=== PATIENT | female | born 1940 | race Caucasian/White ===

== ENCOUNTER 2020-12-31 10:49 | Emergency (ER) | payer OTHER ==
--- NOTE | 2020-12-31 11:29 | RAD REPORT ---
EXAM DESCRIPTION: CT - CTHCSPWOC - 12/31/2020 11:06 am CLINICAL HISTORY: PAIN COMPARISON: No comparisonsNo comparisons TECHNIQUE: Axial 5 mm thick images of the head were obtained. Axial 2 mm thick images of the cervic al spine were obtained with sagittal and coronal reconstruction images generated and reviewed. All CT scans are performed using dose optimization technique as appropriate and may include automated exposure control or mA/KV adjustment according to patient size. FINDINGS: Intraventricular hemorrhage is present involving the atrium and occipital horn of the left lateral ventricle. Intraparenchymal hemorrhage is not seen. No epidural or subdural hematoma identif ied. No hydrocephalus is present. Patient does have significant chronic ischemic change. Atrophy hinojosa ges are only mild. No midline shift is present. An acute cortical based infarction is not identified. No cortical edema or sulcal effacement. Mastoid air cells and paranasal sinuses are clear. No globe or orbit abnormality seen. Small posterior left scalp hematoma is present. Cervical bodies are normal in height. There is very slight anterior subluxation of C5 on C6. Advanced degenerative change involves the inferior endplate of C6 with C6-7 disc space narrowing and endplate spurring. Prominent facet degenerative change present on the left at C4-5 and C5-6. No other disc sp vita narrowing. No fracture or acute bony abnormality. Central canal detail is inherently limited. No paraspinal mass or hematoma. Carotid calcifications are present. IMPRESSION: Moderate-sized left lateral ventricle intraventricular hemorrhage. No epidural or subdur al hematoma identifiable. No intraparenchymal hemorrhage seen. No hydrocephalus. No intraventricular mass or other abnormality seen to suggest intraventricular hemorrhage triggered t he fall rather than the fall causing intraventricular hemorrhage. Patient has significant chronic ischemic change but only mild atrophy. Left parietal scalp hematoma with no underlying fracture. Cervical spine degenerative change as detailed. No acute cervical spine finding.
[2020-12-31] MEDS ORDERED: NA CHLORIDE 0.9% 1,000 ML IV SCH (11:45)
[2020-12-31] MEDS ORDERED: levETIRAcetam 1,000 MG in NA CHLORIDE 0.9% 100 ML IV ONE (12:00)
[2020-12-31] MEDS ORDERED: LIDOCAINE 1% W/EPI 1:100,000 MDV 20 ML VIAL ONE (12:03)
[2020-12-31 12:05] LABS: Protime INR 0.97
[2020-12-31] MEDS ORDERED: NA CHLORIDE 0.9% 1,000 ML ONE (12:05)
[2020-12-31 12:07] LABS: Absolute Lymphocytes (CBC) 0.7 K/uL (0.7-4.9); Basophils % 0.4 % (0-1.3); Hematocrit 40.7 % (36.0-45.0); Lymphocytes % 12.3 % (15.3-44.8); MPV 8.8 fL (7.6-11.3); RBC Red Blood Cell Count 4.51 M/uL (3.86-4.86)
--- NOTE | 2020-12-31 12:19 | EDPHYS ---
Physician Documentation [facility] Name: Kay Amato Age: 80 yrs Sex: Female : 1940 Arrival Date: 12/31/2020 Time: 10:53 Bed 25 Private MD: SAMPSON Physician Kris Lock HPI: 12/31 11:57 This 80 yrs old Female presents to ER via EMS with complaints of Head Injury leonides With LOC-Adult. 11:57 The patient or guardian reports crush injury, decreased movement, swelling. The leonides complaints affect the left side of the back of head and left occipital area. Context of injury: The problem was sustained at home, resulted from a fall. Onset: The symptoms/episode began/occurred just prior to arrival. Associated signs and symptoms: The patient has no apparent associated signs or symptoms, Loss of consciousness: This patient experience a loss of consciousness, for 10 minute(s). Severity of symptoms: At their worst the symptoms were moderate, in the emergency department the symptoms have improved. The patient has not experienced similar symptoms in the past. Historical: - Allergies: 11:42 Penicillins; aj1 11:42 dye; aj1 - Home Meds: 11:42 Tramadol Oral [Active]; gabapentin oral [Active]; pregabalin Oral [Active]; Myrbetriq aj1 oral [Active]; alendronate oral [Active]; atorvastatin oral [Active]; aspirin 81 mg Oral chew 1 tab once daily [Active]; - PMHx: 11:42 breast cancer; shingles; aj1 - PSHx: 11:42 mastectomy - right side; aj1 - Immunization history:: Adult Immunizations up to date. - Social history:: Smoking status: Patient/guardian denies using tobacco. - Family history:: not pertinent. ROS: 12:01 Constitutional: Negative for fever, chills, and weight loss, Eyes: Negative for injury, leonides pain, redness, and discharge, ENT: Negative for injury, pain, and discharge, Neck: Negative for injury, pain, and swelling, Cardiovascular: Negative for chest pain, palpitations, and edema, Respiratory: Negative for shortness of breath, cough, wheezing, and pleuritic chest pain, Abdomen/GI: Negative for abdominal pain, nausea, vomiting, diarrhea, and constipation, Back: Negative for injury and pain, : Negative for injury, bleeding, discharge, and swelling, Skin: Negative for injury, rash, and discoloration, Psych: Negative for depression, anxiety, suicide ideation, homicidal ideation, and hallucinations, Allergy/Immunology: Negative for hives, rash, and allergies, Endocrine: Negative for neck swelling, polydipsia, polyuria, polyphagia, and marked weight changes, Hematologic/Lymphatic: Negative for swollen nodes, abnormal bleeding, and unusual bruising. 12:01 MS/extremity: Positive for decreased range of motion, pain, swelling, tenderness, of the left lower back and left gluteus cornelius. Exam: 12:01 Constitutional: This is a well developed, well nourished patient who is awake, alert, leonides and in no acute distress. Eyes: Pupils equal round and reactive to light, extra-ocular motions intact. Lids and lashes normal. Conjunctiva and sclera are non-icteric and not injected. Cornea within normal limits. Periorbital areas with no swelling, redness, or edema. ENT: Nares patent. No nasal discharge, no septal abnormalities noted. Tympanic membranes are normal and external auditory canals are clear. Oropharynx with no redness, swelling, or masses, exudates, or evidence of obstruction, uvula midline. Mucous membranes moist. Neck: Trachea midline, no thyromegaly or masses palpated, and no cervical lymphadenopathy. Supple, full range of motion without nuchal rigidity, or vertebral point tenderness. No Meningismus. Chest/axilla: Normal chest wall appearance and motion. Nontender with no deformity. No lesions are appreciated. Cardiovascular: Regular rate and rhythm with a normal S1 and S2. No gallops, murmurs, or rubs. Normal PMI, no JVD. No pulse deficits. Respiratory: Lungs have equal breath sounds bilaterally, clear to auscultation and percussion. No rales, rhonchi or wheezes noted. No increased work of breathing, no retractions or nasal flaring. Abdomen/GI: Soft, non-tender, with normal bowel sounds. No distension or tympany. No guarding or rebound. No evidence of tenderness throughout. Back: No spinal tenderness. No costovertebral tenderness. Full range of motion. Female : Normal external genitalia. Neuro: Awake and alert, GCS 15, oriented to person, place, time, and situation. Cranial nerves II-XII grossly intact. Motor strength 5/5 in all extremities. Sensory grossly intact. Cerebellar exam normal. Normal gait. Psych: Awake, alert, with orientation to person, place and time. Behavior, mood, and affect are within normal limits. 12:01 Head/face: Noted is contusion, hematoma, that is moderate, swelling, that is moderate, of the left side of the back of head and left occipital area. 12:01 Musculoskeletal/extremity: Extremities: grossly normal except: noted in the left lower back and left gluteus cornelius: decreased ROM, pain, swelling, tenderness, ROM: full active range of motion, full passive range of motion, Circulation is intact in all extremities. Sensation intact. Compartment Syndrome exam of affected extremity: is normal. DVT Exam: negative Homans' sign noted on exam, no appreciated bluish discoloration, no erythema, no increased warmth, pain, swelling, tenderness. 12:01 Neuro: Orientation: is normal, appropriate for stated age, no acute changes, Mentation: is normal, appropriate for stated age, no acute changes, Memory: is normal, appropriate for stated age, Cranial nerves: grossly normal, is grossly normal based on the patient's age, no acute changes, Cerebellar function: is grossly normal, is grossly normal based on the patient's age, no acute changes, Motor: is normal, is grossly normal based on the patient's age, no acute changes, moves all fours, strength is normal, Sensation: is normal, no obvious gross deficits, appropriate no acute changes, Gait: not tested. Deep tendon reflexes are 2+ (normal) in the bilateral brachioradialis, bicep, tricep and patellar and Achilles tendons, Babinski testing is normal, seizure activity, is not displayed by the patient. 12:22 ECG was reviewed by the Attending Physician. leonides Vital Signs: 11:00 BP 147 / 69; Pulse 79; Resp 18; Temp 98.2; Pulse Ox 97% ; Pain 2/10; aj1 11:30 BP 165 / 74; Pulse 89; Resp 18; Pulse Ox 99% on R/A; aj1 12:00 BP 159 / 86; Pulse 80; Resp 18; Pulse Ox 99% on R/A; aj1 12:30 BP 170 / 76; Pulse 79; Resp 18; Pulse Ox 100% on R/A; aj1 Leslie Coma Score: 11:00 Eye Response: spontaneous(4). Verbal Response: oriented(5). Motor Response: obeys aj1 commands(6). Total: 15. 11:30 Eye Response: spontaneous(4). Verbal Response: oriented(5). Motor Response: obeys aj1 commands(6). Total: 15. 11:57 Eye Response: spontaneous(4). Verbal Response: oriented(5). Motor Response: obeys leonides commands(6). Total: 15. 12:00 Eye Response: spontaneous(4). Verbal Response: oriented(5). Motor Response: obeys aj1 commands(6). Total: 15. 12:04 Eye Response: spontaneous(4). Verbal Response: oriented(5). Motor Response: obeys leonides commands(6). Total: 15. Trauma Score (Adult): 11:00 Eye Response: spontaneous(1); Verbal Response: oriented(1); Motor Response: obeys aj1 commands(2); Systolic BP: > 89 mm Hg(4); Respiratory Rate: 10 to 29 per min(4); Newkirk Score: 15; Trauma Score: 12 12:30 Eye Response: spontaneous(1); Verbal Response: oriented(1); Motor Response: obeys aj1 commands(2); Systolic BP: > 89 mm Hg(4); Respiratory Rate: 10 to 29 per min(4); Leslie Score: 15; Trauma Score: 12 Laceration: 12:05 Wound Repair of 2.5cm ( 1.0in ) subcutaneous laceration to left side of the back of [facility] head. Arterial bleeding noted.. Distal neuro/vascular/tendon intact. Anesthesia: Local anesthetic administered with 0 mls of none. Wound prep: Simple cleansing by ok. Skin closed with 6 rafaela Rafaela using staple gun. Dressed with pressure dressing, non-adherent dressing. Patient tolerated well. MDM: 10:54 Patient medically screened. [facility] 12:04 Differential diagnosis: Hematoma on Laceration of Intracranial bleed- Concussion with leonides LOC. Data reviewed: vital signs, nurses notes, lab test result(s), EKG, radiologic studies, CT scan, plain films. Data interpreted: case monitor: rate is 89 beats/min, rhythm is regular, Pulse oximetry: on room air is 99 %. Test interpretation: by ED physician or midlevel provider: ECG, plain radiologic studies. Counseling: I had a detailed discussion with the patient and/or guardian regarding: the historical points, exam findings, and any diagnostic results supporting the discharge/admit diagnosis, lab results, radiology results, the need to transfer to another facility, for higher level of care, [facility] does not immediately have the required specialist. 12/31 11:26 Order name: Basic Metabolic Panel [facility] 12/31 11:26 Order name: CBC with Diff [facility] 12/31 11:26 Order name: LFT's; Complete Time: 12:23 [facility] 12/31 11:26 Order name: Magnesium; Complete Time: 12:23 [facility] 12/31 11:26 Order name: NT PRO-BNP; Complete Time: 12:23 [facility] 12/31 11:26 Order name: PT-INR [facility] 12/31 10:55 Order name: CT Head C Spine; Complete Time: 11:44 [facility] 12/31 11:26 Order name: Troponin (emerg Dept Use Only); Complete Time: 12:23 [facility] 12/31 11:26 Order name: XRAY Chest (1 view) [facility] 12/31 11:26 Order name: Basic Metabolic Panel; Complete Time: 12:23 [facility] 12/31 11:49 Order name: Pelvis XRAY [facility] 12/31 12:14 Order name: SARS-COV-2 RT PCR [facility] 12/31 11:26 Order name: EKG; Complete Time: 11:27 12/31 11:26 Order name: Cardiac monitoring; Complete Time: 11:31 12/31 11:26 Order name: EKG - Nurse/Tech; Complete Time: 11:31 12/31 11:26 Order name: IV Saline Lock; Complete Time: 11:31 12/31 11:26 Order name: Labs collected and sent; Complete Time: 12:13 12/31 11:26 Order name: O2 Per Protocol; Complete Time: 12:13 12/31 11:26 Order name: O2 Sat Monitoring; Complete Time: 12:13 12/31 11:26 Order name: Seizure Precautions; Complete Time: 11:36 12/31 11:49 Order name: CT Chest Abdomen Pelvis W/O Contrast [facility] 12/31 11:50 Order name: Dressing - Wound; Complete Time: 12:08 12/31 11:50 Order name: Gloves, Sterile; Complete Time: 11:54 [facility] 12/31 11:50 Order name: Setup Suture Tray; Complete Time: 11:54 [facility] 12/31 11:50 Order name: Wound dressing; Complete Time: 12:08 [facility] EC:22 Rate is 71 beats/min. Rhythm is regular. QRS [place] is Normal. [place] interval is normal. QRS leonides interval is normal. QT interval is normal. No Q waves. T waves are Normal. No ST changes noted. Clinical impression: Normal ECG and No evidence of ischemia. Interpreted by me. Reviewed by me. Administered Medications: 12:32 Drug: Keppra (levETIRAcetam) 1000 mg Route: IV; Rate: per protocol; Site: left aj1 antecubital; 12:32 Drug: NS 0.9% 1000 ml Route: IV; Rate: 125 ml/hr; Site: left antecubital; aj1 Disposition Summary: 12/31/20 12:18 Transfer Ordered Transfer Location: [facility] leonides Reason: Higher level of care leonides Condition: Fair leonides Problem: new leonides Symptoms: have improved leonides Accepting Physician: dr stacey mcmahon(12/31/20 13:12) rebecca Diagnosis - Fall (on) (from) other stairs and steps leonides - Contusion of left hip - hematoma leonides - Laceration without foreign body of other part of head - 2.5 cm leonides - intraventricular hemorrhage, left lateral ventricle, moderate sized, traumatic leonides Discharge Instructions: - Discharge Summary Sheet aj1 Forms: - SBAR form aj1 - Medication Reconciliation Form leonides Signatures: Dispatcher [employer] EDAnnalee Leblanc RN RN aj1 Kris Lock MD MD cha Botello, Elizabeth eb Corrections: (The following items were deleted from the chart) 12:14 11:27 CORONAVIRUS+MR.LAB.BRZ ordered. EDMS EDMS 12:26 11:50 Hip Left 2 View+RAD.RAD.BRZ ordered. EDMS EDMS 12:57 12:18 dr stacey mcmahon cha [facility] 13:12 12:57 dr satcey lund eb
--- NOTE | 2020-12-31 12:19 | ER ---
Nurse's Notes [facility] Name: Kay Amato Age: 80 yrs Sex: Female : 1940 Arrival Date: 12/31/2020 Time: 10:53 Bed 25 Private MD: Diagnosis: Fall (on) (from) other stairs and steps;Contusion of left hip-hematoma;Laceration without foreign body of other part of head-2.5 cm;intraventricular hemorrhage, left lateral ventricle, moderate sized, traumatic Presentation: 12/31 11:00 Chief complaint: EMS states: Patient fell down half a flight of stairs, estimated 8 to aj1 10 steps. The patient's heard her fall and came into the room. +LOC witnessed by . Laceration to left occipital region, skin tear to left arm. Patient reports tenderness to left eye, redness noted to left eye. PERRLA. Patient is slow to answer questions, and does not remember falling down the stairs, but is otherwise oriented x3 at this time. 11:00 Acuity: ESTIVEN 2 aj1 11:00 Care prior to arrival: Cervical collar in place. Placed on backboard. Mechanism of aj1 Injury: Fall. Trauma event details: Injury occurred in the [facility]. 11:00 Method Of Arrival: EMS: [facility] aj1 11:41 Coronavirus screen: Client denies travel out of the [place] in the last 14 days. Ebola aj1 Screen: Patient denies travel to an Ebola-affected area in the 21 days before illness onset. Initial Sepsis Screen: Does the patient meet any 2 criteria? No. Patient's initial sepsis screen is negative. Does the patient have a suspected source of infection? No. Patient's initial sepsis screen is negative. Risk Assessment: Do you want to hurt yourself or someone else? Patient reports no desire to harm self or others. Onset of symptoms was December 31, 2020. Trauma Activation: Physician: ED Physician; Name: Ashvin; Notified At: 10:42; Arrived At: 10:42 Physician: General Surgeon; Name: ; Notified At: 10:42; Arrived At: Physician: Radiology; Name: Shama; Notified At: 10:42; Arrived At: 10:42 Physician: Respiratory; Name: ; Notified At: 10:42; Arrived At: Physician: Lab; Name: ; Notified At: 10:42; Arrived At: Historical: - Allergies: 11:42 Penicillins; aj1 11:42 dye; aj1 - Home Meds: 11:42 Tramadol Oral [Active]; gabapentin oral [Active]; pregabalin Oral [Active]; Myrbetriq aj1 oral [Active]; alendronate oral [Active]; atorvastatin oral [Active]; aspirin 81 mg Oral chew 1 tab once daily [Active]; - PMHx: 11:42 breast cancer; shingles; aj1 - PSHx: 11:42 mastectomy - right side; aj1 - Immunization history:: Adult Immunizations up to date. - Social history:: Smoking status: Patient/guardian denies using tobacco. - Family history:: not pertinent. Screenin:00 Abuse screen: Denies threats or abuse. Denies injuries from another. Tuberculosis aj1 screening: No symptoms or risk factors identified. 11:00 Nutritional screening: No deficits noted. Fall Risk Fall in past 12 months (25 points). aj1 Secondary diagnosis (15 points) brain bleed. IV access (20 points). Ambulatory Aid- None/Bed Rest/Nurse Assist (0 pts). Gait- Normal/Bed Rest/Wheelchair (0 pts) Mental Status- Oriented to own ability (0 pts). Total Mackay Fall Scale indicates High Risk Score (45 or more points). Fall prevention measures have been instituted. Side Rails Up X 2 Placed Close to Nursing Station Frequent Obs/Assessments Occuring. Primary Survey: 11:00 NO uncontrolled hemorrhage observed. A: Airway: patent. Breathing/Chest: Respiratory aj1 pattern: regular. Circulation: Skin color: pink. Disability Alert. Exposure/Environment: All clothing and personal items were removed. Forensic evidence collection is not deemed to be indicated at this time. Items placed in patient belonging bag. 12:00 Reassessment Airway Airway Patent Breathing/Chest Respiratory pattern Regular aj1 Respiratory effort Spontaneous Unlabored Circulation Heart rhythm Sinus rhythm Color [place] Disability Alert. Assessment: 11:00 General: Appears in no apparent distress. comfortable, Behavior is calm, cooperative, aj1 appropriate for age. Pain: Complains of pain in left eye Pain currently is 2 out of 10 on a pain scale. Neuro: Level of Consciousness is awake, alert, obeys commands, Oriented to person, place, time, It Support Analyst are equal bilaterally. 11:00 Neuro: Speech is normal, Facial symmetry appears normal, Pupils are PERRLA, Reports a aj1 syncopal episode. 11:00 Cardiovascular: Denies chest pain, Patient's skin is warm and dry. Rhythm is sinus aj1 rhythm. Respiratory: Airway is patent Respiratory effort is even, unlabored, Respiratory pattern is regular, symmetrical. GI: No signs and/or symptoms were reported involving the gastrointestinal system. : No signs and/or symptoms were reported regarding the genitourinary system. EENT: No signs and/or symptoms were reported regarding the EENT system. Derm: Skin is pink, warm \T\ dry. Musculoskeletal: Circulation, motion, and sensation intact. Injury Description: Laceration sustained to scalp skin tear to left arm. 11:36 Reassessment: Dr. Lock at bedside stapling head laceration. aj1 12:00 Reassessment: Patient appears in no apparent distress at this time. Patient and/or aj1 family updated on plan of care and expected duration. Pain level reassessed. General: Appears in no apparent distress. comfortable, Behavior is calm, cooperative, appropriate for age. Pain: Complains of pain in left hip Pain does not radiate. Pain currently is 5 out of 10 on a pain scale. Quality of pain is described as aching. Neuro: Level of Consciousness is awake, alert, obeys commands, Oriented to person, place, time, situation, It Support Analyst are equal bilaterally Speech is normal, Facial symmetry appears normal, Pupils are PERRLA. Cardiovascular: Patient's skin is warm and dry. Rhythm is sinus rhythm. Respiratory: Airway is patent Respiratory effort is even, unlabored, Respiratory pattern is regular, symmetrical. 12:18 Reassessment: Report given to SARWAT Tay at [facility]. aj1 12:30 Reassessment: Patient appears in no apparent distress at this time. No changes from aj1 previously documented assessment. Patient and/or family updated on plan of care and expected duration. Pain level reassessed. Patient is alert, oriented x 3, equal unlabored respirations, skin warm/dry/pink. 12:47 Reassessment: Patient and/or family updated on plan of care and expected duration. Pain aj1 level reassessed. General: Appears in no apparent distress. comfortable, Behavior is calm, cooperative, appropriate for age. Neuro: Level of Consciousness is awake, alert, obeys commands, Oriented to person, place, time, situation, It Support Analyst are equal bilaterally Speech is normal, Facial symmetry appears normal. Cardiovascular: Patient's skin is warm and dry. Rhythm is sinus rhythm. Respiratory: Airway is patent Respiratory effort is even, unlabored, Respiratory pattern is regular, symmetrical. Vital Signs: 11:00 BP 147 / 69; Pulse 79; Resp 18; Temp 98.2; Pulse Ox 97% ; Pain 2/10; aj1 11:30 BP 165 / 74; Pulse 89; Resp 18; Pulse Ox 99% on R/A; aj1 12:00 BP 159 / 86; Pulse 80; Resp 18; Pulse Ox 99% on R/A; aj1 12:30 BP 170 / 76; Pulse 79; Resp 18; Pulse Ox 100% on R/A; aj1 Leslie Coma Score: 11:00 Eye Response: spontaneous(4). Verbal Response: oriented(5). Motor Response: obeys aj1 commands(6). Total: 15. 11:30 Eye Response: spontaneous(4). Verbal Response: oriented(5). Motor Response: obeys aj1 commands(6). Total: 15. 11:57 Eye Response: spontaneous(4). Verbal Response: oriented(5). Motor Response: obeys leonides commands(6). Total: 15. 12:00 Eye Response: spontaneous(4). Verbal Response: oriented(5). Motor Response: obeys aj1 commands(6). Total: 15. 12:04 Eye Response: spontaneous(4). Verbal Response: oriented(5). Motor Response: obeys leonides commands(6). Total: 15. Trauma Score (Adult): 11:00 Eye Response: spontaneous(1); Verbal Response: oriented(1); Motor Response: obeys aj1 commands(2); Systolic BP: > 89 mm Hg(4); Respiratory Rate: 10 to 29 per min(4); Allen Score: 15; Trauma Score: 12 12:30 Eye Response: spontaneous(1); Verbal Response: oriented(1); Motor Response: obeys aj1 commands(2); Systolic BP: > 89 mm Hg(4); Respiratory Rate: 10 to 29 per min(4); Leslie Score: 15; Trauma Score: 12 ED Course: 10:53 Patient arrived in ED. aj1 10:54 Kris Lock MD is Attending Physician. leonides 11:00 Patient has correct armband on for positive identification. aj1 11:00 Arm band placed on. aj1 11:00 Patient maintains SpO2 saturation greater than 95% on room air. aj1 11:00 No provider procedures requiring assistance completed. aj1 11:06 CT Head C Spine In Process Unspecified. EDMS 11:10 Annalee Razo, RN is Primary Nurse. aj1 11:13 Triage completed. aj1 11:47 Thermoregulation: warm blanket given to patient. aj1 11:[address] Lock with the Brandt Cruz Rn from the [facility]. 11:50 Initial lab(s) drawn, by wi, sent to lab. Inserted saline lock: 20 gauge in left kj1 antecubital area, using aseptic technique. Blood collected. 11:56 administrative approval given by Brandt Cruz Rn/ patient has been accepted to [facility] ER/ has accepted the patient in transfer/ report to be called to [phone]. 12:17 CT Chest Abdomen Pelvis W/O Contrast In Process Unspecified. EDMS 12:25 XRAY Chest (1 view) In Process Unspecified. EDMS 12:27 Pelvis XRAY In Process Unspecified. EDMS 12:49 Patient transferred, IV remains in place. aj1 13:11 Primary Nurse role handed off by Annalee Razo, RN Administered Medications: 12:32 Drug: Keppra (levETIRAcetam) 1000 mg Route: IV; Rate: per protocol; Site: left aj1 antecubital; 12:32 Drug: NS 0.9% 1000 ml Route: IV; Rate: 125 ml/hr; Site: left antecubital; aj1 Output: 12:51 Urine: 0ml; Total: 0ml. aj1 Outcome: 12:18 ER care complete, transfer ordered by . leonides 12:50 Transferred by ground EMS to [facility]. aj1 12:50 Condition: unchanged 12:50 Discharge instructions given to patient, family, Instructed on the need for transfer. 12:50 Demonstrated understanding of instructions. 12:50 Patient's length of stay was not longer than 2 hours. aj1 12:57 Patient left the ED. aj1 13:12 Patient left the ED. eb Signatures: Dispatcher [employer] Annalee Leach RN RN aj1 Kris Lock MD MD cha Botello, Elizabeth eb Jackson, Kandis kj1
[2020-12-31 12:22] LABS: ALT/SGPT 53 U/L (12-78); AST/SGOT 42 U/L (15-37); Albumin 3.8 g/dL (3.4-5.0); Alkaline Phosphatase 101 U/L (45-117); BUN Blood Urea Nitrogen 19 mg/dL (7-18); Bicarbonate 30 mmol/L (21-32); Bilirubin Direct 0.2 mg/dL (0-0.2); Bilirubin Total 0.4 mg/dL (0.2-1.0); Glucose Level 102 mg/dL (74-106); Magnesium 2.3 mg/dL (1.8-2.4); NT PRO-BNP 719 pg/mL (<450); Protein, Total 7.2 g/dL (6.4-8.2); Sodium Level 141 mmol/L (136-145); Troponin (Emerg Dept Use Only) < 0.02 ng/mL (0.0-0.045)
[2020-12-31 13:02] VITALS: TEMP 98.2
[2020-12-31 13:06] VITALS: BP 170/76; O2SAT 100
--- NOTE | 2020-12-31 13:07 | RAD REPORT ---
EXAM DESCRIPTION: CT - Chest Abd Pelvis Wo Con - 12/31/2020 12:18 pm CLINICAL HISTORY: TRAUMA TRAUMA, fall, chest abdomen and pelvic pain COMPARISON: No comparisons TECHNIQUE: Axial 5 millimeter thick images of the chest, abdomen and pelvis were obtained without IV contrast. Oral contrast was administered. All CT scans are performed using dose optimization technique as appropriate and may include automated exposure control or mA/KV adjustment according to patient size. FINDINGS: No pulmonary contusion or acute lung parenchymal process. Biapical pleural and parenchymal scarring changes are present. There is subpleural scarring throughout the mid and upper lung iniguez. No pneumothorax or pleural effusion. No chest wall mass or abnormal axillary lymphadenopathy seen. Mediastinal and hilar regions show no mass or lymphadenopathy. No significant cardiac finding. Righ t mastectomy changes are present. Patient has numerous right-sided old rib fractures. The liver, spleen and pancreas show no significant findings for non contrast imaging. Gallbladder an d biliary tree are normal. No hydronephrosis or suspicious renal mass. Isodense masses and pyelonephritis cannot be excluded on non contrast imaging. No adrenal abnormalities. No urinary bladder abnormalities. No dilated bowel loops or focal ball bowel wall thickening. No free air, free fluid or inflammatory stranding. No hernia, mass or bulky lymphadenopathy. Vascular calcifications present without aneurysm. Significant contusion changes are present in subcut aneous fatty tissues lateral to the left hip joint. No femoral head, neck or intertrochanteric fractu re identified. [id number] stops at the lesser trochanter of the left femur. No fracture of the pel vis. Sacral ala is intact. Patient has advanced degenerative disc, endplate and facet degenerative ch anges are present. IMPRESSION: CT chest imaging shows numerous old right-sided rib fractures but no pulmonary contusion or acute CT chest finding. No acute injury to the solid abdominal visceral or bowel. No peritoneal or retroperitoneal acute find ing. Significant contusion in the subcutaneous fatty tissues lateral to the left hip joint. No pelvic or h ip fracture seen. CT abdomen and pelvis imaging shows no significant or suspicious finding.
--- NOTE | 2020-12-31 13:26 | RAD REPORT ---
EXAM DESCRIPTION: RAD - Chest Single View - 12/31/2020 12:25 pm CLINICAL HISTORY: PAIN, fall, chest trauma COMPARISON: No remote chest film TECHNIQUE: AP portable chest image was obtained 12/31/2020 12:25 pm . FINDINGS: Extensive fibrotic lung change present. Pulmonary contusion, mass and infiltrate are not s uspected. Heart and vasculature are normal. No measurable pleural effusion and no pneumothorax. No ac eagle bone abnormality seen. Numerous old rib fractures are seen. No acute aortic findings suspected. IMPRESSION: No acute cardiopulmonary process.
--- NOTE | 2020-12-31 13:29 | RAD REPORT ---
EXAM DESCRIPTION: RAD - Pelvis - 12/31/2020 12:27 pm CLINICAL HISTORY: PAIN, fall COMPARISON: No comparisonsNone. TECHNIQUE: AP imaging of the pelvis was obtained. FINDINGS: No fracture of the bony pelvis. No fracture, dislocation or other acute hip joint finding. No significant SI joint findings. Significant contusion changes are seen in the subcutaneous fatty tissues lateral to the pelvis and hi p joint. IMPRESSION: Significant contusion/ edema changes are present in the subcutaneous fatty tissues later al to the hip joint and left hemipelvis. No hip joint fracture or pelvic fracture.
--- NOTE | 2021-01-02 09:02 | EKG ---
Test Date: 2020-12-31 Test Time: 10:59:44 Translational Specialist: DEMARIO MEASUREMENT RESULTS: Intervals: Rate: 78 CA: 138 QRSD: 74 QT: 412 QTc: 469 Spring: P: 71 CA: 138 QRS: 66 T: 71 INTERPRETIVE STATEMENTS: Sinus rhythm with premature supraventricular complexes with occasional premature ventricular complexes Possible Left atrial enlargement Borderline ECG No previous ECG available for comparison Electronically Signed On 01-02-21 08:57:43 CDT by Chris Larios
== END 2020-12-31 13:12 | disposition short-term general hospital (02) ==
LOC: ER 10:49
PROC: 0JQ00ZZ Repair Scalp Subcutaneous Tissue and Fascia, Open Approach (ICD-10-PCS; principal; 2020-12-31)
DX: S06.351A Traumatic hemorrhage of left cerebrum with loss of consciousness of 30 minutes or less, initial encounter (principal); W19.XXXA Unspecified fall, initial encounter; Y92.009 Unspecified place in unspecified non-institutional (private) residence as the place of occurrence of the external cause; Z88.0 Allergy status to penicillin; Z85.3 Personal history of malignant neoplasm of breast; Z79.82 Long term (current) use of aspirin; Z20.822 Contact with and (suspected) exposure to COVID-19; Z91.048 Other nonmedicinal substance allergy status
CPT/HCPCS: 93005; 85025; 80048; 36415; 83735; 85610; 80076; 84484; 83880; 70450; 71250; 72125; 74176; 71045; 72170; 96374; 99285; 12001; U0003; J1953; J7030